=== PATIENT | male | born 1950 | race Caucasian/White ===

== ENCOUNTER → 2022-12-15 | Emergency (ER) | payer MEDICARE, OTHER ==
[~2022-12-15] VITALS: Ht 172.7 cm; Wt 68.0 kg
--- NOTE | 2022-12-15 23:28 | NUR ---
Performed perineal care. Patient had large bowel movement.
--- NOTE | 2022-12-16 01:08 | NUR ---
Called [facility] ambulance to transfer patient back to [facility]. ETA pick out hand time ~90min
--- NOTE | 2022-12-16 01:49 | NUR ---
Gave SBAR report to [place] nurse [facility]
--- NOTE | 2022-12-16 02:24 | NUR ---
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 Patient in stable condition, no signs of distress.
--- NOTE | 2022-12-16 02:25 | NUR ---
Patient discharged to home in stable condition via [facility] with personal belongings. Written and verbal after care instructions given. Patient verbalizes understanding of instructions. Stressed follow up or return to ER for worsening s/s.
[2022-12-16 06:37] VITALS: BP 110/82
== END ==
LOC: ER 20:12
DX: Z04.3 Encounter for examination and observation following other accident (principal); F09 Unspecified mental disorder due to known physiological condition; Z89.611 Acquired absence of right leg above knee; E78.5 Hyperlipidemia, unspecified; N18.9 Chronic kidney disease, unspecified
CPT/HCPCS: 70450; A4663

== ENCOUNTER 2023-02-25 18:45 | Emergency (ER) | payer MEDICARE, OTHER ==
[~2023-02-25] VITALS: Ht 172.7 cm; Wt 69.4 kg
[2023-02-25] MEDS ORDERED: HALO0.5T6 PO (19:03)
[2023-02-25] MEDS ORDERED: AMLO-212 PO (19:03)
[2023-02-25] MEDS ORDERED: ATOR10TA PO (19:03)
[2023-02-25] MEDS ORDERED: POLY250017 PO (19:03)
[2023-02-25] MEDS ORDERED: BISA10SU95 RC (19:03)
[2023-02-25] MEDS ORDERED: DIVA250T4 PO (19:03)
[2023-02-25] MEDS ORDERED: SENN8.6T19 PO (19:03)
[2023-02-25] MEDS ORDERED: MULT-1275 PO (19:03)
[2023-02-25] MEDS ORDERED: APIX5TAB4 PO (19:03)
[2023-02-25] MEDS ORDERED: GABA300C PO (19:03)
--- NOTE | 2023-02-25 19:09 | NUR ---
ADMISSION HISTORY: 1) Fall in the home where he lives. 2) He is on blood thinners - protocol - patient has to be checked out. 3) Patient has a right leg above knee amputation. 4) PLAN: Home after [employer] works etc.
--- NOTE | 2023-02-25 19:11 | NUR ---
CT SCAN - Awaiting procedure
--- NOTE | 2023-02-25 19:36 | NUR ---
Patient resting in bed, no voiced c/o pain or discomfort, no s/s of any distress noted. Informed of plan of care, awaiting results, will continue to monitor.
--- NOTE | 2023-02-25 21:00 | NUR ---
MD was at bedside talking with patient, okay for discharge. Ambulance to be called for transport.
--- NOTE | 2023-02-25 21:01 | NUR ---
Called [facility] per Dr. Christianson's request.
--- NOTE | 2023-02-25 21:09 | NUR ---
[facility], with ETA of 45 minutes. Patient remains stable for transport.
--- NOTE | 2023-02-25 21:39 | NUR ---
Transport has arrived, patient remains stable and ACI given.
[2023-02-25 21:40] VITALS: BP 137/67
== END 2023-02-25 21:40 ==
LOC: ER 18:47
DX: Z04.3 Encounter for examination and observation following other accident (principal); R51.9 Headache, unspecified; N18.9 Chronic kidney disease, unspecified; Z79.899 Other long term (current) drug therapy; W18.39XA Other fall on same level, initial encounter; Y93.89 Activity, other specified; Y92.89 Other specified places as the place of occurrence of the external cause; Y99.8 Other external cause status
CPT/HCPCS: 70450; A4663

== ENCOUNTER 2025-09-12 19:03 | Inpatient (IN) | payer MEDICARE, OTHER ==
[~2025-09-12] VITALS: Ht 172.7 cm; Wt 66.9 kg
[~2025-09-12 19:03] MED LIST: AMLO-212 PO; APIX5TAB4 PO; ATOR10TA PO; BISA10SU95 RC; DIVA250T4 PO; GABA300C PO; HALO0.5T6 PO; MULT-1275 PO; POLY250017 PO; SENN8.6T19 PO
[2025-09-12] MEDS ORDERED: LIDOCAINE 2% (GLYDO= UROJET) 10 ML JELLY MM ONE (19:20)
[2025-09-12] MEDS: LIDOCAINE 2% (GLYDO= UROJET) 10 ML JELLY MM ONE (19:30)
[2025-09-12 19:42] LABS: PLATELET COUNT (AUTO) 220 K/uL (152-348); RED BLOOD CELL COUNT(AUTO) 3.79 MIL/uL (4.06-5.63); RED CELL DISTRIBUTION WIDTH 15.9 % (12.1-16.2); WHITE BLOOD COUNT (AUTO) 7.7 K/uL (3.6-10.2)
[2025-09-12 19:53] LABS: *BILIRUBIN,URIN NEGATIVE (NEGATIVE); *BLOOD, URINE 2+ (NEGATIVE); *CLARITY,URINE CLEAR (CLEAR); *COLOR,URINE YELLOW (YELLOW); *KETONES,URINE NEGATIVE (NEGATIVE); *PROTEIN,URINE NEGATIVE (NEGATIVE); *UROBILINOGEN,URINE 1.0 E.U./dl (NORMAL); LEUKOCYTE ESTERASE ,URINE NEGATIVE (NEGATIVE); NITRITE, URINE NEGATIVE (NEGATIVE); UGLUCOSE NEGATIVE (NEGATIVE)
[2025-09-12 19:53] LABS: CREATININE 0.9 mg/dL (0.6-1.3); SODIUM SERUM 146 mmol/L (136-145); UREA NITROGEN, BLOOD 23 mg/dL (7-18)
[2025-09-12 19:54] LABS: ETHANOL < 3 MG/DL (0-10)
[2025-09-12 19:58] LABS: ASPARTATE AMINOTRANSFERASE 16 U/L (15-37); TOTAL PROTEIN, SERUM 7.4 g/dL (6.4-8.2)
[2025-09-12 20:01] LABS: SQUAMOUS EPITHELIAL CELL,UR FEW /HPF (NONE SEEN)
[2025-09-12 20:06] LABS: *AMPHETAMINE, URINE NEGATIVE (NEGATIVE); *BARBITURATE, URINE NEGATIVE (NEGATIVE); *BENZODIAZEPINE, URINE NEGATIVE (NEGATIVE); *CANNABINOID, URINE NEGATIVE (NEGATIVE); *COCCAINE, URINE NEGATIVE (NEGATIVE); *OPIATE, URINE NEGATIVE (NEGATIVE); *PHENCYCLIDINE SCREEN,URINE NEGATIVE (NEGATIVE); FENTANYL, URINE NEGATIVE (NEGATIVE)
[2025-09-12] MEDS ORDERED: LATA2.5D2 EACHEYE (20:28)
[2025-09-12] MEDS ORDERED: APIX2.5T PO (20:28)
[2025-09-12] MEDS ORDERED: ACET-3117 PO ×2 (20:28)
[2025-09-12] MEDS ORDERED: DORZ1DRO5 EACHEYE (20:28)
[2025-09-12] MEDS ORDERED: BRIM5DRO5 EACHEYE (20:28)
[2025-09-12 21:00] VITALS: BP 152/90
[2025-09-12] MEDS ORDERED: MAGNESIUM HYDROXIDE 30 ML LIQUID UDC PO PRN (22:45)
[2025-09-12] MEDS ORDERED: ACETAMINOPHEN 325 MG TABLET PO PRN (23:30)
[2025-09-12] MEDS: OLANZAPINE 10 MG VIAL IM PRN (23:32)
[2025-09-13 06:17] VITALS: BP 172/77; TEMP 97.4; O2SAT 98
[2025-09-13] MEDS: PANTOPRAZOLE SODIUM 40 MG TABLET.DR PO SCH (06:42)
[2025-09-13 06:44] LABS: PLATELET COUNT (AUTO) 223 K/uL (152-348); RED BLOOD CELL COUNT(AUTO) 3.85 MIL/uL (4.06-5.63); RED CELL DISTRIBUTION WIDTH 15.4 % (12.1-16.2); WHITE BLOOD COUNT (AUTO) 7.8 K/uL (3.6-10.2)
[2025-09-13] MEDS ORDERED: ACETAMINOPHEN 325 MG TABLET PO PRN (07:28)
[2025-09-13 07:33] LABS: CREATININE 0.9 mg/dL (0.6-1.3); SODIUM SERUM 147 mmol/L (136-145); UREA NITROGEN, BLOOD 21 mg/dL (7-18)
[2025-09-13 08:06] LABS: VALPROIC ACID 19 ug/mL (50-100)
[2025-09-13 08:09] VITALS: BP 157/75; TEMP 97.6; O2SAT 100
[2025-09-13] MEDS: GABAPENTIN 300 MG CAPSULE PO SCH (08:56)
[2025-09-13] MEDS: SENNOSIDES 1 TABLET PO SCH (08:56)
[2025-09-13] MEDS: APIXABAN 2.5 MG TABLET PO SCH (08:56)
[2025-09-13] MEDS: DIVALPROEX 250 MG TABLET.DR PO SCH (08:56)
[2025-09-13] MEDS: AMLODIPINE 5 MG TABLET PO SCH (08:57)
[2025-09-13] MEDS: CYANOCOBALAMIN 1,000 MCG TABLET PO SCH (08:58)
[2025-09-13] MEDS ORDERED: DIVA125C2 PO (09:55)
[2025-09-13 11:27] VITALS: BP 150/75; TEMP 97.9; O2SAT 99
[2025-09-13] MEDS: QUETIAPINE FUMARATE 25 MG TABLET PO SCH (12:22)
[2025-09-13] MEDS: DIVALPROEX SPRINKLE 125 MG CAP.SPRINK PO SCH (12:22)
[2025-09-13] MEDS: BRIMONIDINE 0.2% OPHT DROP 10 ML BOTTLE EACHEYE SCH (13:12)
[2025-09-13] MEDS: IV 1/2NS 1000 ML 1,000 ML IV PRN (13:53)
[2025-09-13 15:06] VITALS: BP 143/72; TEMP 97.8; O2SAT 99
[2025-09-13] MEDS: DORZOLAMIDE/TIMOLOL OPHT DROP 10 ML BOTTLE EACHEYE SCH (17:51)
[2025-09-13] MEDS: ENSURE ENLIVE (VAN) 240 ML LIQUID PO SCH (17:51)
[2025-09-13 19:40] VITALS: BP 170/81; TEMP 97.5; O2SAT 100
[2025-09-13] MEDS: LATANOPROST OPHT DROP 2.5 ML BOTTLE EACHEYE SCH (20:46)
[2025-09-13] MEDS: ATORVASTATIN 10 MG TABLET PO SCH (20:46)
[2025-09-14 01:47] VITALS: BP 112/54
[2025-09-14 06:50] VITALS: BP 172/74; TEMP 97.5
[2025-09-14] MEDS ORDERED: AMLODIPINE 5 MG TABLET PO SCH (09:00)
[2025-09-14 09:10] VITALS: BP 162/71; TEMP 97.5; O2SAT 96
[2025-09-14] MEDS: AMLODIPINE 10 MG TABLET PO SCH (09:18)
[2025-09-14 12:00] VITALS: BP 144/71; TEMP 97.6; O2SAT 98
[2025-09-14 16:00] VITALS: BP 149/85; TEMP 97.6; O2SAT 98
[2025-09-14 19:34] VITALS: BP 148/71; TEMP 97.8; O2SAT 100
[2025-09-14] MEDS: TEMAZEPAM 15 MG CAPSULE PO PRN (21:08)
[2025-09-15 05:00] VITALS: BP 144/82; TEMP 97.7; O2SAT 98
[2025-09-15 08:00] VITALS: BP 148/78; TEMP 97.9; O2SAT 96
[2025-09-15 12:00] VITALS: BP 149/83; TEMP 97.8; O2SAT 97
[2025-09-15] MEDS: OLANZAPINE 10 MG VIAL IM ONE (13:37)
[2025-09-15 16:13] VITALS: BP 134/71; TEMP 99; O2SAT 97
[2025-09-15 19:00] VITALS: BP 148/73; TEMP 98.9; O2SAT 99
[2025-09-15] MEDS: QUETIAPINE FUMARATE 25 MG TABLET PO PRN (21:04)
[2025-09-15] MEDS: OLANZAPINE 10 MG VIAL IM PRN (21:17)
[2025-09-16 05:00] VITALS: BP 172/72; TEMP 98.3; O2SAT 98
[2025-09-16 07:16] VITALS: BP 147/74; TEMP 97.7; O2SAT 98
[2025-09-16 16:00] VITALS: BP 137/71; TEMP 97.9; O2SAT 100
== END 2025-09-16 18:50 | DRG 309 ==
LOC: ER 19:11 → MEDSURG3 21:20 → TELE3 09-13 00:06 → MEDSURG3 09-14 09:55
PROVIDERS: ADMIT Internal Medicine; ATTEND Internal Medicine
DX: R00.1 Bradycardia, unspecified (principal); E87.0 Hyperosmolality and hypernatremia; F03.911 Unspecified dementia, unspecified severity, with agitation; J98.11 Atelectasis; F03.94 Unspecified dementia, unspecified severity, with anxiety; F03.92 Unspecified dementia, unspecified severity, with psychotic disturbance; I10 Essential (primary) hypertension; D63.8 Anemia in other chronic diseases classified elsewhere; R79.89 Other specified abnormal findings of blood chemistry; E03.9 Hypothyroidism, unspecified; Z79.899 Other long term (current) drug therapy; Z89.611 Acquired absence of right leg above knee; Z86.711 Personal history of pulmonary embolism; Z79.01 Long term (current) use of anticoagulants; Z78.1 Physical restraint status
CPT/HCPCS: 36415; 71045; 80164; 83735; 84100; 84153; 84443; 85025; A4663; G0378; G0480; J0360; J2358; J3490